=== PATIENT | male | born 1965 ===

== ENCOUNTER 2024-05-15 10:43 | Outpatient (REF) | payer OTHER, SELFPAY | END 2024-05-15 10:44 | disposition home or self-care (01) | LOC: HO.HOSX 10:43 | PROVIDERS: Visit Provider Orthopaedic Surgery | DX: M79.642 Pain in left hand (principal); S62.307A Unspecified fracture of fifth metacarpal bone, left hand, initial encounter for closed fracture; S62.615A Displaced fracture of proximal phalanx of left ring finger, initial encounter for closed fracture | CPT/HCPCS: 26600; 26740; 73130 ==

== ENCOUNTER 2024-05-15 10:57 | Outpatient (AMB) | payer OTHER, SELFPAY ==
--- NOTE | 2024-05-15 11:25 | MHC.OFFVIS ---
Vital Signs 05/15/24 11:28 Height 5 ft 8 in Weight 220 lb BMI 33.4 Intake Visit Reasons: FC- Left hand fx Intake Note: Kodak is a 58 yo right hand dominant male who presents today for an ED follow up s/p left hand fx, DOI 05/09/24. Patient reports he was going up some stone steps trying to catch his dog and he fell, jamming his left hand into some rocks. Patient reports pain on the dorsal aspect of the left hand. He states he is unable to bend his left middle, ring, and small finger without pain. Patient denies numbness and tingling. Denies finger locking. Patient has tried Tylenol and Advil with occassional relief of his symptoms. Patient denies any surgeries or injuries to the left hand. Allergies secukinumab [From Cosentyx] Allergy (Severe, Verified 05/15/24 11:29) Abdominal Pain promethazine [From Phenergan] Adverse Reaction (Unknown, Verified 05/15/24 11:29) Shakiness HPI HPI FC- Left hand fx: Details: Kodak is a 58 year old right hand dominant man who presents for a left hand fracture, S/P fall, DOI: 05/09/24. He went to catch his dog when he stumbled down his front stairs. He was seen in [facility] ED and placed in a splint. He complains of pain in the back of his left hand, and inability to bend his middle, ring, or small fingers without pain. He denies any numbness or tingling. He says he is retired. [facility] Social History (Updated 05/15/24 @ 11:32 by TYRESE Cheung) Current occupational status: unemployed Current occupation: rt handed Review of Systems Const All systems reviewed & are unremarkable except as noted in HPI and below Physical Exam Vital Signs: BMI result Body Mass Index 33.4 Const General: cooperative, healthy appearing and no acute distress Orientation/consciousness: patient oriented x3 HEENT Head: Yes normocephalic and Yes atraumatic Eyes EOM: EOMs intact bilaterally Resp Effort & Inspection: normal respiratory effort and able to speak in complete sentences Cardio Jugular venous distension: no JVD Skin General skin exam: turgor normal Rashes: no rashes Neuro General: patient oriented x3 Extrem Other: Evaluation of Left Upper Extremity: The patient is alert, oriented, and in no acute distress Neuro: Decreased sujective sensation to the ring finger. Normal sensation to the tips of all digits Vascular: Cap refill brisk ROM: Initially he was splinted with all of his fingers in extension We worked on ROM exercises today in clinic. Before leaving he could bring his fingertips of his palm and back into extension Skin: No lacerations or abrasions. General: No Erythema or evidence of infection. Mild swelling & ecchymosis in the ulnar aspect of his hand Tender over 5th metacarpal head Most tender over 4th MCP joint, moreso over the ring finger proximal phalanx base Radiographs: 3 views of the left hand were taken and viewed by me today in clinic. They show a 5th metacarpal head fracture, transverse, minimally displaced, and a ring finger proximal phalanx ulnar base avulsion fracture, minimally displaced. Psych Appearance: grossly normal Affect: normal affect Attitude: cooperative Office Procedures AMB Fracture Care Details: Fracture care 41230, and 60483 Fracture Billing Code: Fracture Billing Code Assessment & Plan Assessment & Plan (1) Nondisplaced fracture of fifth metacarpal bone of left hand: Comment: Head Code(s): S62.307A - Unspecified fracture of fifth metacarpal bone, left hand, initial encounter for closed fracture Category: Medical (2) Closed fracture of proximal phalanx of left ring finger: Comment: Base Code(s): S62.615A - Displaced fracture of proximal phalanx of left ring finger, initial encounter for closed fracture Category: Medical Plan Assessment & Plan: 1. Left 5th metacarpal head fracture, minimally displaced From a fall, DOI: 05/09/24 2. Left ring finger proximal phalanx base fracture, minimally displaced I educated him about this condition I discussed operative and non-operative treatment options We will manage this conservatively He was fitted for a velcro wrist splint, with his ring & middle fingers Jg-taped, to be worn for the next 4 weeks I discussed activity modification, he is to lift nothing heavier than a cellphone for the next 4 weeks. He is also to avoid any heavy impact activities or falls. He will work on gentle finger ROM exercises at home, out of his splint He is travelling next week on vacation to [place]. He will be accompanied by YUDY Michel, who is his Son-in-Law, and will keep an eye on him He will follow up in 4 weeks, with X-rays. 3V L hand, OOP Scribed for Lesley Morales MD by Toni Singh, registered medical transcriptionist, on 05/15/24 at 11:40 AM, EST. Orders: Orders XR hand LT min 3V Today M79.642 - Pain in left hand Coding Level of Care Code New Pt Level 4 (87587) Diagnoses Nondisplaced fracture of fifth metacarpal bone of left hand S62.307A Closed fracture of proximal phalanx of left ring finger S62.615A CPT Codes Fracture Care - Fracture Billing Code: Fracture Billing Code ([id number])
[2024-05-15 11:28] VITALS: BMI 33.4
== END 2024-05-15 12:22 | disposition home or self-care (01) ==
PROVIDERS: PCP Family Medicine; Visit Provider Orthopaedic Surgery
DX: S62.307A Unspecified fracture of fifth metacarpal bone, left hand, initial encounter for closed fracture (principal); S62.615A Displaced fracture of proximal phalanx of left ring finger, initial encounter for closed fracture
CPT/HCPCS: 26600; 26740; 99203

== ENCOUNTER 2024-06-12 12:03 | Outpatient (REF) | payer OTHER, SELFPAY | END 2024-06-12 12:04 | disposition home or self-care (01) | LOC: HO.HOSX 12:03 | PROVIDERS: Visit Provider Orthopaedic Surgery | DX: M79.642 Pain in left hand (principal) | CPT/HCPCS: 73130 ==

== ENCOUNTER 2024-06-12 13:40 | Outpatient (AMB) | payer OTHER, SELFPAY ==
--- OUTSIDE RECORDS SUMMARY | 2024-06-12 13:44 | XMS_ITS | Data Portability ---
Author Organization [facility], [id number] Address [address] [place] [address] Assessment No assessment recorded. Plan of Treatment Reminders Order Date Submit Date Provider Last Modified By Organization Details Last Modified Time Details Appointments None record ed. Lab None record ed. Referral None record ed. Procedures None record ed. Surgeries None record ed. Imaging None record ed. Medication Orders None record ed. Patient TargetsNo targets recorded. Patient InstructionsNo instructions recorded. Reason for Referral None Reported. Medical Equipment None Reported. Vitals None Recorded Social History None recorded. Functional Status None recorded. Mental Status None recorded. Family History Nothing Reported. Medical History No medical history recorded. Past Encounters Encounter ID Performer Location Encounter Start Date Encounter Closed Date Diagnosis/Indication Diagnosis SNOMED-CT Code Diagnosis ICD10 Code [id number] [address] [place] [address] 05/19/2021 10:26:05 05/19/2021 12:10:59 Health Concerns Section Related Observation LastModified by Organization Detai ls LastModified Time None Recorded Concern Status LastModified by Organization Details LastModified Time None Recorded Advance Directives Directive None Recorded Payers Encounter Date Sequence Insurance Name Policy Number Policy Mancilla Covered Member ID Mancilla Member ID Guarantor Name 05/19/2021 1 [facility] [employer] Evangelista [id number] [employer] Evangelista
--- NOTE | 2024-06-12 13:52 | A.OFFVIS_ITS ---
Vital Signs 06/12/24 13:53 Height 5 ft 8 in Weight 220 lb BMI 33.4 Intake Visit Reasons: OV-Left hand fx-w/xray Intake Note: Kodak 58 yr old right hand dominant male presents today for his follow up visit for his fracture of fifth metacarpal bone of left hand & closed fracture of proximal phalanx of left ring finger. On his last visit patient was advise to do odell taping, wear his velcro brace and work on his ROM. Currently states he is able to make a close fist and extend his finger however he is now having pain in his left middle finger PIP. Relief when he cracks his knuckle. Xrays updated in office. Allergies secukinumab [From Cosentyx] Allergy (Severe, Verified 06/12/24 13:58) Abdominal Pain promethazine [From Phenergan] Adverse Reaction (Unknown, Verified 06/12/24 13:58) Shakiness HPI HPI OV-Left hand fx-w/xray: Details: Kodak is a 58 year old right hand dominant man who returns for her left ring finger & 5th metacarpal fractures, S/P fall, DOI: 05/09/24. He went to catch his dog when he stumbled down his front stairs. This is the [id number] for YUDY Michel. He says he is doing better and has been working on his ROM. He says he is retired. [facility] Social History Current occupational status: unemployed Current occupation: rt handed Physical Exam Vital Signs: BMI result Body Mass Index 33.4 Extrem Other: Evaluation of Left Upper Extremity: The patient is alert, oriented, and in no acute distress Good resolution of his swelling and ecchymosis. He could make a fist and extend all his digits Mild tightness when making a fist, but good range of motion. No rotational mal-alignment Both Fracture sites non-tender Radiographs: 3 views of the left hand were taken and viewed by me today in clinic. They show a 5th metacarpal head fracture, transverse, minimally displaced, and a ring finger proximal phalanx ulnar base avulsion fracture, minimally displaced, both with satisfactory fracture alignment and some evidence of interval bony healing. Assessment & Plan Assessment & Plan (1) Nondisplaced fracture of fifth metacarpal bone of left hand: Comment: Head Code(s): S62.307A - Unspecified fracture of fifth metacarpal bone, left hand, initial encounter for closed fracture Category: Medical (2) Closed fracture of proximal phalanx of left ring finger: Comment: Base Code(s): S62.615A - Displaced fracture of proximal phalanx of left ring finger, initial encounter for closed fracture Category: Medical Plan Assessment & Plan: 1. Left 5th metacarpal head fracture, minimally displaced From a fall, DOI: 05/09/24 2. Left ring finger proximal phalanx base fracture, minimally displaced I educated him about this condition He can stop wearing his splint and odell taping. I discussed activity modification, he is to begin to use his hand for more lightweight activities at this time, and slowly increase his weight limit as tolerated over the next 4 weeks He will continue to work on ROM exercises at home He will follow up prn He is happy with this plan Scribed for Lesley Morales MD by Toni Singh, medical claims examiner, on 06/12/24 at 2:05 PM, EST. Orders: Orders XR hand LT min 3V Today M79.642 - Pain in left hand Coding Level of Care Code Global (99054) Diagnoses Nondisplaced fracture of fifth metacarpal bone of left hand S62.307A Closed fracture of proximal phalanx of left ring finger S62.615A
[2024-06-12 13:53] VITALS: BMI 33.4
== END 2024-06-12 14:19 | disposition home or self-care (01) ==
PROVIDERS: PCP Family Medicine; Visit Provider Orthopaedic Surgery
DX: S62.307A Unspecified fracture of fifth metacarpal bone, left hand, initial encounter for closed fracture (principal); S62.615A Displaced fracture of proximal phalanx of left ring finger, initial encounter for closed fracture
CPT/HCPCS: 99024